=== PATIENT | female | born 1950 | race Caucasian/White ===

== ENCOUNTER → 2021-01-02 | Outpatient (CLI) | payer MEDICARE ==
[~2021-01-02] MED LIST: ASPI81TA45 PO; ESCI10TA10 PO; LACT1CAP35 PO; METO25TA35 PO; ROSU5TAB PO
== END | disposition home or self-care (01) ==
LOC: CVU 10:29
PROVIDERS: ATTEND Internal Medicine Clinical Cardiac Electrophysiology
DX: I65.23 Occlusion and stenosis of bilateral carotid arteries (principal); Z84.89 Family history of other specified conditions
CPT/HCPCS: 93880

== ENCOUNTER → 2021-03-18 | Outpatient (CLI) | payer MEDICARE | END | disposition home or self-care (01) | LOC: CFH 10:22 | PROVIDERS: ATTEND Family Medicine | DX: M19.011 Primary osteoarthritis, right shoulder (principal) ==